=== PATIENT | female | born 1935 | race Caucasian/White ===

== ENCOUNTER 2022-02-21 12:59 | Emergency (ER) | payer MEDICARE ==
[~2022-02-21] VITALS: Ht 160 cm; Wt 56.8 kg
[~2022-02-21 12:59] MED LIST: ATOR20TA86 PO
[2022-02-21] MEDS ORDERED: ROSU10TA72 PO (13:38)
[2022-02-21] MEDS ORDERED: GUAI120L62 PO (13:38)
[2022-02-21 14:24] LABS: BASOPHILS % (AUTO) 0.8 % (0.0-2.0); EOSINOPHILS % (AUTO) 1.2 % (1.0-6.0); HEMOGLOBIN 12.8 g/dL (12.0-16.0); LYMPHOCYTES # (AUTO) 1.6 K/uL (1.0-4.8); LYMPHOCYTES % (AUTO) 18.2 % (22.0-44.0); MEAN CORPUSCULAR HGB CONC 33.6 G/dL (31.0-37.0); MEAN CORPUSCULAR VOLUME 84 fL (80-100); MONOCYTES # (AUTO) 0.8 K/uL (0.1-1.0); MONOCYTES % (AUTO) 8.8 % (2.0-9.0); NEUTROPHILS # (AUTO) 6.4 K/uL (1.8-7.7); PLATELET COUNT (AUTO) 260 K/uL (150-450); RED BLOOD CELL COUNT(AUTO) 4.55 MIL/uL (4.00-5.20); RED CELL DISTRIBUTION WIDTH 16.2 % (11.5-14.5)
[2022-02-21 14:34] LABS: CALCIUM, TOTAL 9.1 mg/dL (8.8-10.5); CREATININE 1.07 mg/dL (0.60-1.30); POTASSIUM 3.5 mmol/L (3.5-5.1)
[2022-02-21 14:39] LABS: ALBUMIN 3.3 g/dL (3.4-5.0); BILIRUBIN,TOTAL 0.3 mg/dL (0.1-1.0); TOTAL PROTEIN, SERUM 7.1 g/dL (6.4-8.2)
[2022-02-21 14:44] LABS: APPEARANCE,URINE HAZY (CLEAR); BILIRUBIN,URINE NEGATIVE (NEGATIVE); GLUCOSE, URINE (UA) NEGATIVE (NEGATIVE); KETONES,URINE NEGATIVE (NEGATIVE); LEUKOCYTE ESTERASE ,URINE LARGE (NEGATIVE); NITRATE,URINE POSITIVE (NEGATIVE); OCCULT BLOOD,URINE TRACE (NEGATIVE); PH,URINE 6.5 (5.0-8.0); PROTEIN,URINE 30-70 mg/dL (NEGATIVE); SPECIFIC GRAVITIY, URINE 1.018 (1.003-1.030); UROBILINOGEN,URINE <=1.0 mg/dL (<=1.0)
[2022-02-21 14:49] LABS: BACTERIA,URINE Many /HPF (None Seen); FINE GRANULAR CASTS,URINE 0-2 /LPF (None Seen); HYALINE CASTS, URINE 0-2 /LPF (None Seen); RBC,URINE 0-2 /HPF (0-2); WBC,URINE >100 /HPF (0-5)
[2022-02-21] MEDS ORDERED: OXYC5TAB3 PO (14:56)
[2022-02-21] MEDS ORDERED: PHENAZOPYRIDINE HCL 100 MG TABLET PO ONE (15:00)
[2022-02-21] MEDS ORDERED: SULFAMETHOX/TRIMETH DS 800-160 MG/TABLET PO ONE (15:00)
[2022-02-21 15:27] VITALS: BP 103/61
[2022-02-21] MEDS ORDERED: SULF-261 PO (15:31)
[2022-02-21] MEDS ORDERED: PHEN-846 PO (15:31)
== END 2022-02-21 15:47 | disposition home or self-care (01) ==
LOC: EMS 13:01
DX: N39.0 Urinary tract infection, site not specified (principal); E78.00 Pure hypercholesterolemia, unspecified; R33.9 Retention of urine, unspecified; F17.210 Nicotine dependence, cigarettes, uncomplicated; Z88.0 Allergy status to penicillin
CPT/HCPCS: 51701; 51702; 74176; 80053; 81001; 85025; 87086; 99284

== ENCOUNTER 2022-03-09 07:21 | Emergency (ER) | payer MEDICARE ==
[~2022-03-09] VITALS: Ht 152.4 cm; Wt 45.5 kg
[~2022-03-09 07:21] MED LIST changes: -ATOR20TA86 PO; +GUAI120L62 PO; +OXYC5TAB3 PO; +PHEN-846 PO; +ROSU10TA72 PO; +SULF-261 PO
[2022-03-09 08:18] LABS: EOSINOPHILS % (AUTO) 2.6 % (1.0-6.0); HEMATOCRIT 35.4 % (36-46); HEMOGLOBIN 11.7 g/dL (12.0-16.0); LYMPHOCYTES # (AUTO) 1.4 K/uL (1.0-4.8); LYMPHOCYTES % (AUTO) 25.4 % (22.0-44.0); MEAN CORPUSCULAR HEMOGLOBIN 28.2 pg (26.0-34.0); MEAN CORPUSCULAR HGB CONC 33.1 G/dL (31.0-37.0); MEAN CORPUSCULAR VOLUME 85 fL (80-100); MONOCYTES # (AUTO) 0.5 K/uL (0.1-1.0); MONOCYTES % (AUTO) 8.1 % (2.0-9.0); NEUTROPHILS # (AUTO) 3.5 K/uL (1.8-7.7); NEUTROPHILS % (AUTO) 61.9 % (40.0-70.0); PLATELET COUNT (AUTO) 349 K/uL (150-450); RED BLOOD CELL COUNT(AUTO) 4.16 MIL/uL (4.00-5.20); RED CELL DISTRIBUTION WIDTH 15.6 % (11.5-14.5)
[2022-03-09 08:29] LABS: CALCIUM, TOTAL 9.9 mg/dL (8.8-10.5); POTASSIUM 3.3 mmol/L (3.5-5.1)
[2022-03-09 08:35] LABS: ALBUMIN 3.3 g/dL (3.4-5.0); BILIRUBIN,TOTAL 0.3 mg/dL (0.1-1.0); TOTAL PROTEIN, SERUM 7.5 g/dL (6.4-8.2)
[2022-03-09 10:29] LABS: APPEARANCE,URINE CLEAR (CLEAR); BILIRUBIN,URINE NEGATIVE (NEGATIVE); GLUCOSE, URINE (UA) NEGATIVE (NEGATIVE); KETONES,URINE NEGATIVE (NEGATIVE); LEUKOCYTE ESTERASE ,URINE LARGE (NEGATIVE); NITRATE,URINE NEGATIVE (NEGATIVE); OCCULT BLOOD,URINE NEGATIVE (NEGATIVE); PH,URINE 6.5 (5.0-8.0); PROTEIN,URINE NEGATIVE (NEGATIVE); SPECIFIC GRAVITIY, URINE 1.009 (1.003-1.030); UROBILINOGEN,URINE <=1.0 mg/dL (<=1.0)
[2022-03-09 10:30] VITALS: BP 121/69
[2022-03-09] MEDS ORDERED: PHEN-846 PO ×2 (10:37→10:55)
[2022-03-09] MEDS ORDERED: CIPR-279 PO ×2 (10:37→10:55)
[2022-03-09] MEDS ORDERED: MICO45CR44 VG ×2 (10:37→10:55)
[2022-03-09] MEDS ORDERED: CEPH-558 PO ×2 (10:37→10:55)
[2022-03-09] MEDS ORDERED: CIPROFLOXACIN HCL 250 MG TABLET PO ONE (10:45)
[2022-03-09] MEDS ORDERED: CEPHALEXIN MONOHYDRATE 500 MG CAPSULE PO ONE (10:45)
[2022-03-09 10:50] LABS: AMORPHOUS SEDIMENT,UR Few /LPF (None Seen); BACTERIA,URINE Moderate /HPF (None Seen); RBC,URINE 0-2 /HPF (0-2); SQUAMOUS EPITHELIAL CELL,UR Few /LPF (None Seen)
== END 2022-03-09 10:58 | disposition home or self-care (01) ==
LOC: EMS 07:22
DX: N39.0 Urinary tract infection, site not specified (principal); E78.00 Pure hypercholesterolemia, unspecified; Z88.0 Allergy status to penicillin; Z79.899 Other long term (current) drug therapy
CPT/HCPCS: 80053; 81001; 85025; 87086; 99283